=== PATIENT | male | born 1980 | race Caucasian/White ===

== ENCOUNTER 2019-03-31 05:51 | Emergency (ER) | payer OTHER ==
[~2019-03-31] VITALS: Ht 180.3 cm; Wt 138.3 kg
[~2019-03-31 05:51] MED LIST: DELTASONE20 MG PO; FLEXERIL PO; HYDROCODON-ACE1 EAC7 PO; LEVOFLOXACIN750 MG PO; MEDROL DOSPAK21 TA1 PO; OMEPRAZOLE20 M1 PO; PANTOPRAZOLE SO40 M1 PO; VENTOLIN HFA 1818 GM INH
[2019-03-31 06:14] LABS: URINE BILIRUBIN NEGATIVE (Negative); URINE BLOOD 3+ (Negative); URINE CLARITY CLEAR; URINE COLOR YELLOW; URINE GLUCOSE-RANDOM NEGATIVE (Negative); URINE KETONES NEGATIVE (Negative); URINE LEUKOCYTES-REFLEX NEGATIVE (Negative); URINE NITRITE-REFLEX NEGATIVE (Negative); URINE PROTEIN 1+ (Negative); URINE SPECIFIC GRAVITY >= 1.030 (1.005-1.030); URINE UROBILINOGEN 0.2 E.U./dl (0.2-1.0)
[2019-03-31 06:30] LABS: BACTERIA-REFLEX 1-9 Few /HPF (None Seen); CASTS None Seen /LPF (None Seen); CRYSTALS None Seen /LPF (None Seen); MUCUS None Seen strn/LPF (None Seen); SQUAMOUS 4-10 Moderate /LPF (0-3); URINE RBC 3-10 Few /HPF (0-2); URINE WBC-REFLEX 0-5 Rare /HPF (0-5)
[2019-03-31 06:43] LABS: ABSOLUTE EOSINOPHILS 0.2 thou/uL (0.0-0.7); ABSOLUTE LYMPHOCYTES 1.4 thou/uL (0.8-5.3); ABSOLUTE MONOCYTES 0.4 thou/uL (0.0-1.2); ABSOLUTE NEUTROPHILS 4.7 thou/uL (1.6-8.1); BASOPHILS 0.7 %; EOSINOPHILS 2.6 %; HEMATOCRIT 39.2 % (42.0-52.0); HEMOGLOBIN 13.6 gm/dL (14.0-18.0); LYMPHOCYTES 20.3 %; MCH 29.6 pg (26.0-34.0); MCHC 34.6 g/dL (28.0-37.0); MCV 85.5 fL (80.0-100.0); MONOCYTES 6.1 %; MPV 7.7 fl. (7.2-11.1); NUCLEATED RBCS 0 /100WBC; PLATELET COUNT* 250 thou/uL (150-400); POLYS 70.3 %; RBC 4.59 mil/uL (4.50-6.00); RDW-CV 12.9 % (10.5-14.5); WBC 6.6 thou/uL (4.0-11.0)
[2019-03-31 07:01] LABS: POTASSIUM 3.6 mmol/L (3.5-5.1)
[2019-03-31 07:05] LABS: ALBUMIN 3.6 g/dL (3.4-5.0); TOTAL BILIRUBIN 0.2 mg/dL (<0.1-1.0); TOTAL PROTEIN 7.4 g/dL (6.4-8.2)
[2019-03-31] MEDS ORDERED: CIPROFLOXACIN500 M1 PO (07:54)
[2019-03-31] MEDS ORDERED: NORCO 5-325 TA1 EAC1 PO (07:54)
[2019-03-31] MEDS ORDERED: FLOMAX0.4 MG PO (07:54)
[2019-03-31 08:12] VITALS: BP 143/79
== END 2019-03-31 08:13 | disposition home or self-care (01) ==
LOC: M.ERS 05:51
PROVIDERS: Emergency Medicine
DX: N20.0 Calculus of kidney (principal); R42 Dizziness and giddiness